=== PATIENT | male | born 1985 | race Caucasian/White ===

== ENCOUNTER 2018-12-27 01:01 | Emergency (ER) | payer OTHER ==
[~2018-12-27] VITALS: Ht 190.5 cm; Wt 79.4 kg
[2018-12-27 01:03] VITALS: BP 134/82
--- NOTE | 2018-12-27 01:24 | ER.PDOC ---
General Chief Complaint: Trauma Stated Complaint: FALL Time seen by MD: :19 Source: patient Exam Limitations: no limitations History of Present Illness Initial Comments 33 year old white male with facial pain from planting his face on the ground at work. 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 Denies neck pain. No loss of consciousness. +nose bleed Occurred: just prior to arrival Where: work Severity: moderate Injuries/Pain Location: face Context: Other (fall) Loss of Consciousness: No Loss of Consciousness Associated Symptoms: denies symptoms Allergies: Coded Allergies: No Known Allergies (Unverified , 12/27/18) Past Medical History Medical History: no pertinent history Surgical History: no surgical history Social History Smoking: less than 1 pack/day Alcohol Use: occassionally Drug Use: marijuana Review of Systems Constitutional: denies no symptoms reported, denies see HPI, denies chills, denies diaphoresis, denies fever, denies malaise, denies weakness, denies other Eyes: no symptoms reported Ears, Nose, Mouth, Throat: see HPI Respiratory: no symptoms reported Cardiovascular: no symptoms reported Gastrointestinal: no symptoms reported Genitourinary: no symptoms reported Musculoskeletal: no symptoms reported Skin: no symptoms reported Psychiatric/Neurological: no symptoms reported Physical Exam General Appearance: WD/WN Head: Other (swollen tender ecchymotic nostril with inactive nose bleed) Eyes: bilateral eye normal inspection Cardiovascular/Respiratory: Regular Rate, Rhythm, No M/R/G, Normal Peripheral Pulses, No JVD, Normal Breath Sounds, No Respiratory Distress Gastrointestinal: Normal Bowel Sounds, No Organomegaly, No Pulsatile Mass, Non Tender, Soft Back: Normal Inspection, No CVA Tenderness, No Vertebral Tenderness Extremities: No Evidence of Injury, Normal Range of Motion, Non-Tender, No Pedal Edema 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, No Motor/Sensory Deficits, Alert, Normal Mood/Affect, Oriented x 3 Skin: Normal Color, Warm/Dry [place] Coma Score Best Eye Response: (4) Open Spontaneously Best Verbal Response: (5) Oriented Best Motor Response: (6) Obeys Commands Elizabeth Total: 15 Results/Orders Results/Orders Administered Medications Medications (Trade) Dose Ordered Sig/Arvin Route PRN Reason Start Time Stop Time Status Last Admin Dose Admin Acetaminophen/ Hydrocodone Bitart ([place] 7.5mg) 1 each OT STAT PO 12/27/18 03:07 12/27/18 03:10 DC 12/27/18 03:11 Progress Progress nasal bone fracture Departure Time of Disposition: 03:23 Disposition: 01 HOME, SELF-CARE Impression: Primary Impression: Nasal bone fracture Condition: Stable Referrals: PCP,UNKNOWN (PCP) PRIMARY CARE PROVIDER Comments Ice compresses Tylenol #3 Naproxen RTEr prn Follow up PCP Duration or Time Spent with Pa: 30 Problem Qualifiers Primary Impression: Nasal bone fracture Encounter type: initial encounter Fracture type: closed Qualified Codes: S02.2XXA - Fracture of nasal bones, initial encounter for closed fracture NEHEMIAH CHOUDHARY MD Dec 27, 2018 01:24
--- NOTE | 2018-12-27 01:31 | NUR ---
ICE ICE PACK APPLIED TO NOSE WITH TOWEL COVERING SKIN
--- NOTE | 2018-12-27 01:41 | NUR ---
CT PATIENT TO CT
[2018-12-27 01:46] VITALS: BP 147/58
--- NOTE | 2018-12-27 02:24 | DIREP ---
PROCEDURE:CT MAXILLOFACIAL W/O CONTRAST COMPARISON:None. INDICATIONS:fall TECHNIQUE:Axial CT images were created without intravenous contrast. Sagittal and coronal reformatted images are provided. FINDINGS: ORBITS:The globe is intact. No extraocular muscle entrapment is identified. No orbital wall fracture is identified. FACIAL BONES:No fracture. NASAL BONES :Multiple nasal bone fractures. These are displaced from right to left. MANDIBLE:No fracture. SINUSES:Air-fluid levels, left greater than right. Minimal fluid in the sphenoid sinus. Mucosal thickening involving the ethmoid sinuses SOFT TISSUES:Soft tissue swelling overlying the nasal bones, and forehead, right greater than left. CONCLUSION:Fracture of the nasal bones. Overlying soft tissue swelling. Mucosal thickening involving the ethmoid sinuses. Fluid in the maxillary sinuses, left greater than right. Minimal fluid in the sphenoid sinus Dictated by: Aldo Montemayor MD on 12/27/2018 at 02:19 AM
[2018-12-27 02:45] VITALS: BP 134/82
[2018-12-27] MEDS ORDERED: NORCO 7.5MG PO ONE (03:03)
[2018-12-27] MEDS ORDERED: NORCO 7.5MG PO STA (03:07)
[2018-12-27 03:31] VITALS: BP 120/68
--- NOTE | 2018-12-27 03:45 | NUR ---
PAIN PATIENT STILL COMPLAINS OF PAIN AND NOW HAVING SOME NAUSEA. HE SAID THAT HE HAS NOT ATE SINCE 1500 YESTERDAY. OFFERED SOME CRACKERS BUT HE REFUSED. NOTIFIED DR. CHOUDHARY AND NEW ORDERS RECEIVED.
[2018-12-27] MEDS ORDERED: TORADOL ONE (03:51)
[2018-12-27] MEDS ORDERED: ZOFRAN ODT ONE (03:51)
[2018-12-27] MEDS ORDERED: TORADOL IM STA (03:52)
[2018-12-27] MEDS ORDERED: ZOFRAN IM STA (03:52)
[2018-12-27] MEDS ORDERED: ZOFRAN ODT SL STA (04:02)
[2018-12-27 04:16] VITALS: BP 120/68
== END 2018-12-27 04:05 | disposition home or self-care (01) ==
LOC: ER 01:01 → EDBD 01:01 → ER 04:05
DX: S02.2XXA Fracture of nasal bones, initial encounter for closed fracture (principal); F17.210 Nicotine dependence, cigarettes, uncomplicated; F12.10 Cannabis abuse, uncomplicated; W22.8XXA Striking against or struck by other objects, initial encounter; Y93.89 Activity, other specified; Y92.69 Other specified industrial and construction area as the place of occurrence of the external cause; Y99.0 Civilian activity done for income or pay
CPT/HCPCS: 70486; 96372; 99285; J1885; Q0162